=== PATIENT | female | born 1990 | race Caucasian/White ===

== ENCOUNTER → 2018-04-13 17:05 | Observation (INO) ==
[2018-04-13] MEDS: *HR* Promethazine 25 MG/ML VIAL IVP PRN ×2 (00:20→07:03)
[2018-04-13] MEDS: *HR* OxyCODONE Immed Rel 5 MG TABLET PO PRN ×2 (00:25→07:00)
[2018-04-13] MEDS: Piperacillin/Tazobactam 3.375 GM in 0.9 % Sodium Chloride Mini Bag 100 ML IVPB SCH ×2 (00:27→07:04)
--- NOTE | 2018-04-13 08:10 | Anesthesia Evaluation PreOp ---
Date of Encounter: 04/13/18 Time of Encounter: 08:09 - Past History Planned Operation: Lap Appy Cardiac History: Denies any Significant Hx Pulmonary History: Denies Any Significant HX WATERPROOFING MIXER History: Denies Any Significant HX Other Medical History: Denies Any Significant HX Anesthesia History: No Prior Anesthetic Complications, Past Anesthesia (Tubal, T &A), Problems (PONV) : No Test: Negative (per records from Outside Facility) Alcohol Use: occasionally Drug use: none Medications and Allergies 3 Allergy/AdvReac Type Severity Reaction Status Date / Time No Known Allergies Allergy Verified 04/12/18 23:27 - Meds/Allergy Pre-op Review Medications Reviewed: Yes Allergies Reviewed: Yes Beta Blockers on Current Med List: No Anesthesia Exam Vital Signs Temp Pulse Resp BP Pulse Ox 04/13/18 07:33 98.2 F 58 16 109/74 95 04/13/18 04:08 98.3 F 61 15 128/79 99 04/12/18 23:20 97.8 F 64 15 134/86 100 Height: 5'10" Weight: 162# BMI = 23 NPO (# of Hours): MNoc Pain Scale Used: Numeric (1 - 10) - HEENT Pupil (Motor): Pupils equal, EOMI Mallampati: II Teeth: Normal Oral Opening: Greater than 3 - WATERPROOFING MIXER LOC: Oriented WATERPROOFING MIXER Motor: Normal RUE, Normal LUE, Normal RLE, Normal LLE, Normal Face WATERPROOFING MIXER Sensory: Normal: RUE, LUE, RLE, LLE, Face - Cardiac Rhythm: Regular Murmur: None - Pulmonary Breath Sounds: bilateral Clear Respiratory Effort: Symmetrical Anesthesia Assess/Plan ASA Score: 2 Modified Oscar Scale for Level of Consciousness: Cooperative, oriented, and tranquil Anesthetic Plan: General Monitoring Plan: Standard Monitors Recovery Plan: PACU Anes Supervising Prov Stmt: Pt seen/evaluated, R&B Discussed, questions answered and consent obtained. Annel Walker MD
--- NOTE | 2018-04-13 09:37 | General Surg History&Physical ---
Date of Encounter: 04/13/18 Time of Encounter: 09:00 History of Present Illness Chief complaint: Right lower quadrant abdominal pain, acute appendicitis HPI: Ms. Robertson is a 28 year old female transferred from [facility] after presenting to the emergency department with approximately 24- hour history of progressive right lower quadrant abdominal pain, nausea and vomiting. The patient indicates the nausea and vomiting initiated on , 04/10/18. The abdominal pain was described as particularly severe on Saturday evening 04/11/18 but she did not present to the emergency department until . Despite these symptoms white count was normal. Other labs were also unremarkable: Hemoglobin 12.3, hematocrit 37.2, platelets 278,000, differential was normal. Electrolytes were normal BUN 11, creatinine 0.62. Serum negative. LFTs were also within normal limits. CT abdomen and pelvis demonstrated a slightly thickened appendix measuring 8 mm with mild Catarino's appendiceal stranding consistent with uncomplicated acute appendicitis. The patient was transferred to [facility] for further evaluation and treatment. Past medical history: Unremarkable - patient describes having strep throat last week Medications: The patient is on no routine home meds Allergies: No known drug allergies Social history: Patient is G4, P2; she did have an ectopic ; the patient denies any tobacco or illicit drug use; she does admit to alcohol consumption approximately once monthly Family history: Noncontributory Physical examination: Age-appropriate woman resting comfortably in her hospital bed She is 1.78 m tall; 73.6 kg, BMI 23.3 The patient has been afebrile since arrival at [place], currently 98.2, pulse 58 (ranging 58-61) respiratory rate 16 and unlabored; blood pressure 109/74. SPO2 on room air 95%. Skin: Warm, no obvious jaundice Lungs: Clear, no abdominal pain on deep inspiration Cardiac: Slow but regular rate; no appreciable murmurs Abdomen: Soft with tenderness in the right lower quadrant. There are no palpable masses, no rebound. Bowel sounds were present but hypoactive. Extremities: No obvious clubbing, cyanosis, edema. Impression: New-onset right lower quadrant abdominal pain, accompanied by nausea and vomiting. The nausea and vomiting has been controlled. IV fluids and antibiotics have been administered since her transfer to [facility]. Radiologic evidence of acute appendicitis corroborated by physical examination. Treatment options include appendectomy versus nonsurgical management with IV fluids, pain medications, and antibiotics. The risks of both options were discussed. The patient is a reasonable candidate for laparoscopic appendectomy but understands that open appendectomy may become necessary. Risks include hemorrhage, infection, intra- abdominal abscess, injury to adjacent structures such as colon, small bowel, ureter, and bladder bladder. The risk of nonoperative management includes worsening abdominal pain breast of appendicitis with increased risk of perforation, and if her acute appendicitis resolves this episode there is an increased risk of recurrence in the future. The patient and her family in attendance have expressed understanding and wished to proceed with surgery. Surgical consent has been obtained. We will proceed with laparoscopic appendectomy with possible open KEITH. Past Med Surg Social Fam HX - Past Medical History Additional medical history: ectopic Psychiatric history: no psych history - Past Surgical History Additional surgical history: Tonsilectomy - Social History Smoking Status: Never smoker Alcohol use: occasionally Drug use: none Medications and Allergies 3 Allergy/AdvReac Type Severity Reaction Status Date / Time No Known Allergies Allergy Verified 04/12/18 23:27 Review of Systems All systems PM: The remainder of the systems were reviewed and are negative General Surgery Exam Initial Vital Signs Temp Pulse Resp BP Pulse Ox 97.8 F 64 15 134/86 100 04/12/18 23:20 04/12/18 23:20 04/12/18 23:20 04/12/18 23:20 04/12/18 23:20 Results - Labs All other labs normal.
--- NOTE | 2018-04-13 11:45 | Operative Note ---
Date of procedure: 04/13/18 Pre-op diagnosis: right lower quadrant abd pain; acute appendicitis Post-op diagnosis: same Procedure: laparoscopic appendectomy Complications: none apparent Anesthesia: GETA Local Anesthetics: 0.25% Sensorcaine HCL with Epinephrine 1:200,000 SubQ (cc) ( 30mL) Surgeon: Matt Atkins Was there an assistant account manager present: No Estimated blood loss (cc): 20 IV fluids (cc): 1,000 Specimen: appendix Condition: stable Disposition: PACU Procedure in Detail: Brief history: 28-year-old female transferred from [facility] for further evaluation and treatment of progressive right lower quadrant abdominal pain with radiologic evidence of acute appendicitis. Complete history and physical is available for inspection. Technique: Patient was brought to the operating room where she was placed supine on the procedure table. The patient was appropriately identified as to person and procedure. The accuracy of this information was confirmed by the patient and procedure team. The patient was intubated and anesthetized under the supervision of Dr. Vero Galeas. The abdomen was examined under anesthesia, no palpable intra-abdominal or pelvic masses were identified. The appendix was not palpable. The abdomen was prepped and draped in usual sterile fashion. Several milliliters of 0.25% bupivacaine with 1-200,000 epinephrine was infiltrated into the infraumbilical skin. A small transverse incision was made and dissection was extended to the fascia. Additional bupivacaine with epinephrine was infiltrated into the fascia. The fascia was grasped, elevated, and incised. An 11 mm Xcel port was established. The rigid laparoscope was placed within the obturator to visualize passage through the layers of the anterior abdominal wall. When the abdominal cavity was accessed, the obturator was replaced by the rigid laparoscope, the abdomen was insufflated with gaseous carbon dioxide. There were no obvious visible injury from establishing the port. Under direct visualization a 5 mm port was placed suprapubically and a 12 mm port established in the left lower quadrant midclavicular line. Both of the port sites were infiltrated with bupivacaine with epinephrine. The cecum was identified, lifted anteriorly. The anterior tinea was identified and followed to the base of the appendix. The appendix was grasped to permit dissection of the mesoappendix at the junction between the appendix and the cecum. The appendix was transected at its junction with the cecum using an Ethicon ATS 45 mm stapler, blue cartridge. The appendix was retrocecal. There were some scars in the area likely related to patient's previous history ectopic . These adhesions were divided lwith the aid of an Ethicon harmonic makenna. The mesoappendix was isolated and transected with the Ethicon ATS 45 mm stapler, vascular cartridge. When the appendix was from the surrounding structures, it was placed in an endoscopic pouch and removed via the infraumbilical opening. The appendix was recovered and sent to pathology. The staple lines were inspected and appeared intact. Hemostasis appeared to be appropriate.. A small amount of bloody fluid had collected in the right paracolic gutter. This was evacuated with an endoscopic suction device. The peritoneum was evacuated, the instrumentation removed. The fascia of the infraumbilical opening was closed with interrupted [id number] 0 Vicryl using S retractors. The skin edges of the port sites were approximated with subcuticular 4-0 Vicryl. The incisions were sealed with Dermabond dermal adhesive. The patient was taken to recovery in stable condition. Needle, sponge, and instrument counts were correct at the close of the case. Total volume of 0.25% bupivacaine with 1-200,000 units epinephrine, 30 mL.
[2018-04-13] MEDS: *HR* HYDROmorphone (PF) 1 MG/ML SYRINGE IVP PRN ×2 (11:55→12:05)
--- NOTE | 2018-04-13 13:43 | Anesthesia Evaluation Post Op ---
Date of Encounter: 04/13/18 Time of Encounter: 12:35 - Vital Signs Vital Signs: Vital Signs/O2 Sat/Glucose, Most Current Temp Pulse Resp BP Pulse Ox 04/13/18 12:30 97.5 F L 64 14 106/75 96 04/13/18 12:20 61 14 107/66 95 04/13/18 12:10 98.7 F 60 12 105/67 96 04/13/18 12:00 63 12 103/71 96 04/13/18 11:50 63 14 114/72 100 04/13/18 11:40 97.4 F L 81 14 115/78 100 - Lungs Lungs: Clear Ascult./Percussion - Airway Airway: Non-obstructed - Cardiovascular Regular Rate - Mental Status Mental Status: Alert & Oriented, Answers Appropriately - Pain Pain Scale: 0 Pain Scale used: Numeric (1 - 10) - Nausea Vomiting Nausea Vomiting: Not Present - Hydration Hydration: Tolerates oral liquids - Discharge PostOp Status: Transfer Patient to floor Anes Supervising Prov Stmt: Pt seen/evaluated, VSS and pt has met criteria for discharge to home. - MD Aaron
[2018-04-13 15:30] VITALS: BP 101/64
--- NOTE | 2018-04-13 16:46 | General Surgery Progress Note ---
Date of Encounter: 04/13/18 Time of Encounter: 16:42 Subjective Narrative: General Surgery - post op Status post laparoscopic appendectomy earlier today. The patient describes feeling better resolution of her preoperative right lower quadrant abdominal pain. There is mild persistent pain related to the port sites as expected. Port sites are intact. The patient has remained afebrile, currently 98.1; hemodynamically stable with a pulse TA, respirations 16, blood pressure 101/64. Lungs: Clear Abdomen: Soft, with minimal right lower quadrant tenderness. Port sites intact. The patient expressed a wish to be discharged. The patient's postoperative status is reasonable for discharge home. Operative pathology is pending The patient will follow-up with me in the office on , 04/17/18. Patient may consume a regular diet Activity as tolerated; lifting limited to less than 20 pounds The patient may shower wash her incisions with soap and water Tylenol, ibuprofen, Motrin, Advil, Aleve, etc. recommended for postoperative pain Prescription for Percocet 5/325, #12; one every 6 hours as needed for pain not relieved by [id number] medications Objective Vital Signs - Last 8 Hours Temp Pulse Resp BP Pulse Ox 04/13/18 15:25 98.1 F 68 16 101/64 98 04/13/18 14:24 98.5 F 72 16 110/71 96 04/13/18 13:30 98.2 F 68 16 109/73 96 04/13/18 13:00 98.3 F 64 15 112/73 98 04/13/18 12:30 97.5 F L 64 14 106/75 96 04/13/18 12:20 61 14 107/66 95 04/13/18 12:10 98.7 F 60 12 105/67 96 04/13/18 12:00 63 12 103/71 96 04/13/18 11:50 63 14 114/72 100 04/13/18 11:40 97.4 F L 81 14 115/78 100 04/13/18 08:56 95 Intake and Output 04/13/18 04/13/18 04/13/18 07:59 15:59 23:59 Intake Total 900 / 900 1750 / 1750 Output Total 500 / 500 670 / 670 Balance 400 / 400 1080 / 1080 Intake: IV Fluids 900 / 900 1750 / 1750 Lactated Ringers 1,000 ML @ 75 300 / 300 1150 / 1150 mls/hr IVC .[id number] KIMBERLI Rx#: [id number] Lactated Ringers 500 ML @ 1000 500 / 500 500 / 500 mls/hr IVC .Q30M ONE Rx#: [id number] Zosyn 3.375 GM In 0.9 % Sodium 100 / 100 100 / 100 Chloride (Mini-Bag +) 100 ML @ 25 mls/hr IVPB Q8HR [facility] Rx#: [id number] Oral 0 / 0 0 / 0 Output: Urine 500 / 500 650 / 650 Estimated Blood Loss 20 / 20 Other: Meal NPO # Voids 1 Consult Discharge Plan - Plan Referrals: Niyah Escamilla, SCIENTIFIC AFFAIRS MANAGER [Primary Care Provider] -
--- NOTE | 2018-04-13 16:49 | Discharge Summary ---
Outpatient Proc Discharge Plan - Plan Additional Instructions: Regular diet Activity as tolerated No driving for at least 24 hours after administration of anesthesia Lifting limited to less than 20 pounds Patient may shower, wash incisions with soap and water Tylenol, ibuprofen, Motrin, Advil, Aleve, etc. as needed for pain Prescription for Percocet 5/325, #12, one every 6 hours as needed for pain not relieved by [id number] medications Outpatient follow-up in the office, 04/17/18; patient call office in a.m. to make this appointment. Prescriptions: OxyCODONE/APAP 5/325 [Percocet 5/325 MG] 1 each PO Q6H PRN 3 Days #12 tablet PRN Reason: Pain Home Medications: Acetaminophen [Tylenol] 650 mg PO Q6H PRN tablet 04/13/18 [Rx] OxyCODONE/APAP 5/325 [Percocet 5/325 MG] 1 each PO Q6H PRN 3 Days #12 tablet [Rx]
[~2018-04-13 17:05] MED LIST: *HR* FentaNYL (PF) 100 MCG/2 ML VIAL ONE; *HR* Labetalol 20 MG/4 ML SYRINGE IVP PRN; *HR* Meperidine 25 MG/ML SYRINGE IVP PRN; *HR* OxyCODONE Immed Rel 5 MG TABLET PO PRN; *HR* OxyCODONE/APAP 5/325 TABLET PO PRN; *HR* Promethazine 25 MG/ML VIAL IVP PRN; *HR* Propofol 200 MG/20 ML VIAL IVP ONE; *HR* Rocuronium Bromide 50 MG/5 ML VIAL ONE; *HR* Succinylcholine 200 MG/10 ML VIAL IVP ONE; Acetaminophen 325 MG TABLET PO PRN; Acetaminophen IV 1,000 MG/100 ML INFUS..BTL ONE; Bupivacaine/EPI 1:200k 0.25%PF 30 ML VIAL ONE; Dexamethasone 4 MG/ML VIAL IVP ONE; Dexamethasone 4 MG/ML VIAL ONE; EPHEDrine 50 MG/ML VIAL ONE; Famotidine 20 MG/2 ML VIAL ONE; Ketorolac 30 MG/ML VIAL ONE; Lacri-Lube 3.5 GM TUBE ONE; Lidocaine -MPF 2% 2 ML VIAL ONE; Lidocaine -MPF 4% 5 ML AMPUL ONE; Neostigmine Methylsulfate 3 MG/3 ML SYRINGE ONE; Ondansetron 4 MG/2 ML VIAL IVP ONE; Ondansetron 4 MG/2 ML VIAL IVP PRN; Ondansetron 4 MG/2 ML VIAL ONE; Ringers Solution, Lactated 1,000 ML IVC SCH; Ringers Solution, Lactated 500 ML IVC ONE; Scopolamine Patch 1.5 MG PATCH.TD72 ONE; Water for inj. (sterile) 10 ML IV ONE
== END | disposition home or self-care (01) ==
LOC: 3ANU
PROVIDERS: ADMIT Surgery; ATTEND Surgery